=== PATIENT | female | born 1995 | race African-American/Black ===

== ENCOUNTER 2021-08-09 09:09 | Emergency (ER) | payer SELFPAY ==
[~2021-08-09] VITALS: Ht 175.3 cm; Wt 130.1 kg
--- NOTE | 2021-08-09 09:48 | PHYS DOC ---
Past Medical History Past Medical History: STD Past Surgical History: No Surgical History General Adult EDM: Chief Complaint: SEXUALLY TRANSMITTED DISEASE HPI: HPI: Patient is a 26 year old female who presents for STI check. Two months ago, patient was treated for BV, trichomoniasis, gonorrhea and chlamydia. At that time, she had gonococcal pharyngitis as well. She reports she had intercourse with her partner two days after initiating antibiotic treatment. Patient states her partner was seen here in the ED yesterday. She reports he tested negative for "all STIs, but got diagnosed with some kind of infection." Patient now has a "funny feeling" since being told her partner has an infection. Patient states she contracted these STIs from a prior partner, but has been with her current partner since June 2021. Patient denies abdominal pain, pubic pain, dyspareunia, change in vaginal discharge quantity or consistency, vaginal odor, vaginal irritation, dysuria, hematuria, sore throat, fever. Review of Systems: Review of Systems: ROS negative or noncontributory except as mentioned in HPI. Heart Score: C/O Chest Pain: No Allergies: Allergies: Allergies Coded Allergies Type Severity Reaction Last Updated Verified No Known Drug Allergies 08/09/21 No Physical Exam: PE: Constitutional: Well developed, well nourished, no acute distress, non-toxic appearance. HENT: Normocephalic, atraumatic, bilateral external ears without deformity or discharge, oropharynx moist, no oral exudates, nose no deformity or discharge. Eyes: PERRL, EOMI, conjunctiva normal, no discharge. Neck: Normal range of motion, no tenderness, supple, no stridor. Abdomen: Soft, no tenderness, no masses, no pulsatile masses. Genital: Appropriate and symmetrical hair growth pattern, no rash or other skin lesions to mons pubis or labia, labia minora and majora without erythema or other skin abnormalities, white & thin vaginal discharge noted at the introitus without obvious malodor. Skin: Warm, dry, no erythema, no rash. Extremities: No tenderness, no cyanosis, no clubbing, active ROM intact, no edema. Neurologic: Alert and oriented x4, steady and symmetrical upright gait, no focal deficits noted. Current Patient Data: Labs: Procedure Result WET PREP Final YEAST PRESENT TRICHOMONAS NONE SEEN CLUE CELLS NONE SEEN ALTERED HIRAM ALTERED HIRAM PRESENT SUGGESTIVE OF BACTERIAL VAGINOSIS WBCS FEW SQUAMOUS EPS MANY Laboratory Tests Test 08/09/21 10:00 08/09/21 10:04 08/09/21 10:06 Urine Collection Type Unknown Urine Color Yellow Urine Clarity Clear Urine pH 6.5 (<5.0-8.0) Urine Specific [place] 1.025 (1.000-1.030) Urine Protein Negative mg/dL (NEG-TRACE) Urine Glucose (UA) Negative mg/dL (NEG) Urine Ketones (Stick) Negative mg/dL (NEG) Urine Blood Trace (NEG) Urine Nitrite Negative (NEG) Urine Bilirubin Negative (NEG) Urine Urobilinogen Dipstick 0.2 mg/dL (0.2 mg/dL) Urine Leukocyte Esterase Negative (NEG) Urine RBC 0 /HPF (0-2) Urine WBC Rare /HPF (0-4) Urine Squamous Epithelial Cells Many /LPF Urine Bacteria Few /HPF (0-FEW) Urine Mucus Marked /LPF Bedside Urine HCG, Qualitative Hcg negative (Negative) Treponema pallidum Antibody Nonreactive (Nonreactive) Vital Signs: Vital Signs Date Time Temp Pulse Resp B/P (MAP) Pulse Ox O2 Delivery O2 Flow Rate FiO2 08/09/21 11:47 73 20 151/93 (112) 100 Room Air 08/09/21 10:15 74 18 143/95 (111) 100 Room Air 08/09/21 09:18 99.0 85 18 145/106 (119) 100 Room Air 99.0 Course & Med Decision Making: Course & Med Decision Making Pertinent Labs and Imaging studies reviewed. (See chart for details) Patient reports she had severe diarrhea while taking metronidazole for BV 2 months ago. She requests alternative treatment. At this time, patient be treated for bacterial vaginosis and yeast infection. Should any of her pending cultures come back positive she will be contacted. Return precautions are provided. She is advised not to have sex for period of at least 10 days AND both her and her partner's antibiotic regimens should be completed. Patient understands and is agreeable to discharge plan. Dragon Disclaimer: Dragy[employer] Disclaimer: This electronic medical record was generated, in whole or in part, using a voice recognition dictation system. Departure Departure Impression: Primary Impression: Bacterial vaginosis Additional Impressions: Encounter for screening examination for sexually transmitted disease Vulvovaginal candidiasis Elevated blood pressure reading Disposition: HOME / SELF CARE / HOMELESS Condition: STABLE Patient Instructions: Bacterial Vaginosis, [id number], Candidal Vulvovaginitis, [id number], Safe Sex, Sexually Transmitted Disease, [id number] Additional Instructions: EMERGENCY DEPARTMENT GENERAL DISCHARGE INSTRUCTIONS Thank you for coming to [facility] Emergency Department (ED) today and trusting us with you care. We trust that you had a positive experience in our Emergency Department. If you wish to speak to the department management, you may call the director at . YOUR FOLLOW UP INSTRUCTIONS ARE FOLLOWS: 1. Follow up with your primary care doctor. If you do not have a primary doctor, please ask for a resource list of physicians or clinics that may be able to assist you with follow up care. 2. The emergency provider has interpreted your imaging studies, if any were ordered. The radiology usability specialist also reviewed them. If there is a change in the findings, you will be notified in 48 hours when at all possible. 3. If a lab test or culture has been done, your results will be reviewed and you will be notified if you need a change in treatment. 4. Follow instructions verbalized to you and refer to the printouts if needed. ADDITIONAL INSTRUCTIONS AND INFORMATION: 1. Your care today has been supervised by a physician who is specially trained in emergency care. Many problems require more than one evaluation for a complete diagnosis and treatment. We recommend that you schedule your follow up appointment as recommended to ensure complete treatment of you illness or injury. If you are unable to obtain follow up care and continue to have a problem, or if your condition worsens, we recommend that you return to the ED. 2. We are not able to safely determine your condition over the phone nor are we able to give sound medical advice over the phone. For these safety reasons, if you call for medical advice we will ask you to come to the ED for further evaluation. 3. If you have any questions regarding these discharge instructions please call the ED at . SAFETY INFORMATION: In the interest of safety, wellness, and injury prevention; we encourage you to wear your seat belt, if you smoke; quite smoking, and we encourage family to use a protective helmet for bicycling and other sporting events that present an increased risk for head injury. IF YOUR SYMPTOMS WORSEN OR NEW SYMPTOMS DEVELOP, OR YOU HAVE CONCERNS ABOUT YOUR CONDITION; OR IF YOUR CONDITION WORSENS WHILE YOU ARE WAITING FOR YOUR FOLLOW UP APPOINTMENT; EITHER CONTACT YOUR PRIMARY CARE DOCTOR, THE PHYSICIAN WHOSE NAME AND NUMBER YOU WERE GIVEN, OR RETURN TO THE ED IMMEDIATELY. Scripts Fluconazole (DIFLUCAN) 150 Mg Tablet 1 TAB PO UD, #2 TAB 1 Refill Take 1 tablet by mouth on day 1. Take the other tablet by mouth on day 3. Prov: EUNICE JASMINE 08/09/21 Tinidazole (TINIDAZOLE) 500 Mg Tablet 2 G PO DAILY for 2 Days, #8 TAB Prov: EUNICE JASMINE 08/09/21 EUNICE JASMINE Aug 09, 2021 09:47
[2021-08-09 10:39] LABS: BILIRUBIN,URINE NEGATIVE (NEG); CLARITY,URINE CLEAR; COLOR,URINE YELLOW
[2021-08-09 10:40] LABS: BACTERIA,URINE FEW /HPF (0-FEW); NITRITE,URINE NEGATIVE (NEG); PH,URINE 6.5 (<5.0-8.0); PROTEIN,URINE NEGATIVE (NEG-TRACE); RBC,URINE 0 /HPF (0-2); UROBILINOGEN,URINE 0.2 mg/dL (0.2 mg/dL); WBC,URINE RARE /HPF (0-4)
[2021-08-09] MEDS ORDERED: [UNRECOGNIZED DRUG - CODE] PO (10:52)
[2021-08-09] MEDS ORDERED: FLUC150T PO (10:55)
[2021-08-09 11:47] VITALS: BP 151/93
[2021-08-10 22:08] LABS: GC PROBE Negative (Negative)
== END 2021-08-09 11:46 | disposition home or self-care (01) ==
LOC: ER 09:09
DX: N76.0 Acute vaginitis (principal); B96.89 Other specified bacterial agents as the cause of diseases classified elsewhere; B37.3 Candidiasis of vulva and vagina; R03.0 Elevated blood-pressure reading, without diagnosis of hypertension; Z20.2 Contact with and (suspected) exposure to infections with a predominantly sexual mode of transmission
CPT/HCPCS: 81001; 81025; 86592; 87081; 87491; 87591; 99283; Q0111